=== PATIENT | female | born 1990 | race American Indian/Alaskan Native ===

== ENCOUNTER 2017-10-30 09:10 | Emergency (ER) | payer MEDICAID, OTHER ==
[2017-10-30 09:23] VITALS: BP 90/69
[2017-10-30] MEDS ORDERED: Lidocaine 1% 30 ML SDV INJECT ONE (09:37)
--- NOTE | 2017-10-30 09:42 | EDM.PDOC ---
ED HPI GENERAL MEDICAL PROBLEM - General Chief Complaint: Skin Complaint Stated Complaint: BOILS ON BACK Time Seen by Provider: 10/30/17 09:30 Source of Information: Reports: Patient History Limitations: Reports: No Limitations - History of Present Illness INITIAL COMMENTS - FREE TEXT/NARRATIVE: This 27 yo female patient reports to the ED with a 2 day history of increased pain in her mid back due to a "boil" in the middle of her back. The patient reports she also has a similar area on her right side, but it seems to be getting better. The patient reports she could not sleep last night due to increased pain in her back. The patient denies any personal or close family history of MRSA. Onset Date: 10/29/17 Duration: Constant, Getting Worse Location: Reports: Back Quality: Reports: Ache, Sharp Severity: Moderate Improves with: Reports: None Worsens with: Reports: None Associated Symptoms: Reports: No Other Symptoms - Related Data Allergies Allergy/AdvReac Type Severity Reaction Status Date / Time No Known Allergies Allergy Verified 10/30/17 09:17 Home Meds: Home Meds Ibuprofen [Ibuprofen] 1 tab PO Q6H PRN 04/26/15 [History] Past Medical History - Past Health History Medical/Surgical History: Denies Medical/Surgical History Social & Family History - Tobacco Use Smoking Status *Q: Current Some Day Smoker Years of Tobacco use: 9 Packs/Tins Daily: 0.2 Second Hand Smoke Exposure: Yes - Caffeine Use Caffeine Use: Reports: Coffee, Soda - Recreational Drug Use Recreational Drug Use: No ED ROS GENERAL - Review of Systems Review Of Systems: ROS reveals no pertinent complaints other than HPI. ED EXAM, SKIN/RASH Exam: See Below Exam Limited By: No Limitations General Appearance: Alert, WD/WN, No Apparent Distress Eye Exam: Bilateral Eye: EOMI, Normal Inspection, PERRL Ears: Normal External Exam, Normal Canal, Hearing Grossly Normal, Normal TMs Nose: Normal Inspection, Normal Mucosa, No Blood Throat/Mouth: Normal Inspection, Normal Lips, Normal Teeth, Normal Gums, Normal Oropharynx, Normal Voice, No Airway Compromise Head: Atraumatic, Normocephalic Neck: Normal Inspection, Supple, Non-Tender, Full Range of Motion Respiratory/Chest: No Respiratory Distress, Lungs Clear, Normal Breath Sounds, No Accessory Muscle Use, Chest Non-Tender Cardiovascular: Normal Peripheral Pulses, Regular Rate, Rhythm, No Edema, No Gallop, No JVD, No Murmur, No Rub GI/Abdominal: Normal Bowel Sounds, Soft, Non-Tender, No Organomegaly, No Distention, No Abnormal Bruit, No Mass (Female) Exam: Deferred Rectal (Female) Exam: Deferred Back Exam: Full Range of Motion Extremities: Normal Inspection, Normal Range of Motion, Non-Tender, No Pedal Edema, Normal Capillary Refill Neurological: Alert, Oriented, CN II-XII Intact, Normal Cognition, Normal Gait, Normal Reflexes, No Motor/Sensory Deficits Psychiatric: Normal Affect, Normal Mood Skin: Erythema (mid back) Location, Skin: Back Characteristics: Erythematous Associated features: Warmth, Tenderness, Induration, Inflammation Lymphatic: No Adenopathy Course - Vital Signs Last Recorded V/S: Last Vital Signs Temp 36.8 C 10/30/17 09:18 Pulse 113 H 10/30/17 09:18 Resp 18 10/30/17 09:18 BP 90/69 10/30/17 09:18 Pulse Ox 100 10/30/17 09:18 - Orders/Labs/Meds Orders: Active Orders 24 hr Category Date Time Status Bacitracin [Bacitracin Oint 1 GM] Med 10/30/17 09:53 Once 1 dose TOP ONETIME ONE Meds: Medications Discontinued Medications Generic Name Dose Route Start Last Admin Trade Name Sd PRN Reason Stop Dose Admin Lidocaine HCl 30 ml 10/30/17 09:37 10/30/17 09:43 Xylocaine-Mpf 1% INJECT 10/30/17 09:38 30 ml ONETIME ONE Administration Departure - Departure Time of Disposition: 09:56 Disposition: Home, Self-Care 01 Condition: Fair Clinical Impression: Abscess - Discharge Information Instructions: Abscess, [id number] Forms: ED Department Discharge Care Plan Goals: The patient was advised of the examination results during the visit. The patient was given a dose of Bactrim while in the ED. The patient's abscess was incised and drained with a sample sent to the lab for analysis. The patient will be notified if the culture grows something resistant to the antibiotic she was prescribed. The patient was discharged with a script for Bactrim DS to take 1 by mouth 2 times per day for 10 days. If the patient has any any additional symptoms or concerns, the patient should follow-up with her primary care facility or return to the emergency department. - My Orders Last 24 Hours: My Active Orders 10/30/17 09:53 Bacitracin [Bacitracin Oint 1 GM] 1 dose TOP ONETIME ONE - Assessment/Plan Last 24 Hours: My Active Orders 10/30/17 09:53 Bacitracin [Bacitracin Oint 1 GM] 1 dose TOP ONETIME ONE
[2017-10-30] MEDS ORDERED: Bacitracin Oint 1 GM U/D Packet TOP ONE (09:53)
[2017-10-30] MEDS ORDERED: Sulfamethoxazole/Trimethoprim 800-160 MG Tab PO ONE (09:57)
== END 2017-10-30 10:08 | disposition home or self-care (01) ==
LOC: DL.ED 09:10
DX: L02.212 Cutaneous abscess of back [any part, except buttock and flank] (principal); F17.210 Nicotine dependence, cigarettes, uncomplicated
CPT/HCPCS: 10060; 87070; 87077; 87186; 99283; A9270

== ENCOUNTER 2018-03-18 17:06 | Emergency (ER) | payer MEDICAID, OTHER ==
[2018-03-18 17:43] VITALS: BP 139/93
--- NOTE | 2018-03-18 18:52 | EDM.PDOC ---
Scribed by Maureen Jaramillo 03/18/18 [id number] for Jaswant Bronson MD ED HPI GENERAL MEDICAL PROBLEM - General Chief Complaint: Lower Extremity Injury/Pain Stated Complaint: LEG PAIN [id number] Time Seen by Provider: 03/18/18 17:48 Source of Information: Reports: Patient, RN, RN Notes Reviewed History Limitations: Reports: No Limitations - History of Present Illness INITIAL COMMENTS - FREE TEXT/NARRATIVE: Patient presents to ER with complaint of right foot pain sustained when she twisted her foot earlier today. Hurts to put weight on it. Denies any other injury. Onset: Today Location: Reports: Lower Extremity, Right Quality: Reports: Ache Severity: Moderate Improves with: Reports: None Worsens with: Reports: None Associated Symptoms: Reports: No Other Symptoms Left Feet Pain Score (Numeric/FACES): 10 - Related Data Allergies Allergy/AdvReac Type Severity Reaction Status Date / Time No Known Allergies Allergy Verified 10/30/17 09:17 Home Meds: Home Meds Ibuprofen 1 tab PO Q6H PRN 04/26/15 [History] Past Medical History - Past Health History Medical/Surgical History: Denies Medical/Surgical History Social & Family History - Caffeine Use Caffeine Use: Reports: Coffee, Soda Review of Systems - Review of Systems Review Of Systems: ROS reveals no pertinent complaints other than HPI. 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 Skin is intact.) Neurological: Alert, Oriented, CN II-XII Intact, Normal Cognition, Normal Reflexes, No Motor/Sensory Deficits Course - Vital Signs Last Recorded V/S: Last Vital Signs Temp 36.6 C 03/18/18 17:42 Pulse 98 03/18/18 17:42 Resp 16 03/18/18 17:42 BP 139/93 H 03/18/18 17:42 Pulse Ox 100 03/18/18 17:42 - Orders/Labs/Meds Orders: Active Orders 24 hr Category Date Time Status Foot Comp Min 3V Lt [CR] Urgent Exams 03/18/18 17:47 Taken - Radiology Interpretation Free Text/Narrative:: X-ray foot: Transverse fracture base of the 5th metatarsal is present. See rad report. Departure - Departure Time of Disposition: 18:41 Disposition: Home, Self-Care 01 Condition: Good Clinical Impression: Metatarsal bone fracture - Discharge Information Instructions: Metatarsal Fracture Forms: ED Department Discharge Care Plan Goals: Rest, ice and elevate the right foot. Use crutches for noweight bearing. Remove boot only for showering. Use ibuprofen (Motrin or Advil 200mg). Take 4 tablets by mouth maximum of 2400 in 24 hours. I have read and agree with the documentation that has been completed regarding this visit. By signing this record, I attest that the documentation was completed in my physical presence and is an accurate record of the encounter.
== END 2018-03-18 19:05 | disposition home or self-care (01) ==
LOC: DL.ED 17:06
DX: S92.351A Displaced fracture of fifth metatarsal bone, right foot, initial encounter for closed fracture (principal); X50.9XXA Other and unspecified overexertion or strenuous movements or postures, initial encounter
CPT/HCPCS: 73630-LT; 99283

== ENCOUNTER 2018-06-13 18:42 | Emergency (ER) | payer OTHER, MEDICAID ==
[2018-06-13 18:52] VITALS: BP 140/60
--- NOTE | 2018-06-13 19:57 | EDM.PDOC ---
ED HPI GENERAL MEDICAL PROBLEM - General Chief Complaint: Lower Extremity Injury/Pain Stated Complaint: SPRAINED ANKLE [id number] Time Seen by Provider: 06/13/18 19:58 Source of Information: Reports: Patient, RN, RN Notes Reviewed History Limitations: Reports: No Limitations - History of Present Illness INITIAL COMMENTS - FREE TEXT/NARRATIVE: Pt to Er with c/o right ankle/foot pain. Patient states she tripped over her dog today. Pt denies hitting her head or being knocked out. Rates pain 06/26. States she has been using ibuprofen for pain. Onset: Today, Sudden Right Ankle Pain Score (Numeric/FACES): 9 - Related Data Allergies Allergy/AdvReac Type Severity Reaction Status Date / Time No Known Allergies Allergy Verified 10/30/17 09:17 Home Meds: Home Meds Ibuprofen 1 tab PO Q6H PRN 04/26/15 [History] Past Medical History - Past Health History Medical/Surgical History: Denies Medical/Surgical History HEENT History: Reports: Impaired Vision Social & Family History - Tobacco Use Smoking Status *Q: Current Every Day Smoker Years of Tobacco use: 3 Packs/Tins Daily: 0.5 - Caffeine Use Caffeine Use: Reports: Coffee, Energy Drinks, Soda - Recreational Drug Use Recreational Drug Use: No Review of Systems - Review of Systems Review Of Systems: ROS reveals no pertinent complaints other than HPI. ED EXAM, GENERAL - Physical Exam Exam: See Below Exam Limited By: No Limitations General Appearance: Alert, WD/WN, No Apparent Distress Eye Exam: Bilateral Eye: EOMI, Normal Inspection Ears: Normal External Exam, Hearing Grossly Normal Nose: Normal Inspection Throat/Mouth: Normal Inspection, Normal Voice, No Airway Compromise Head: Atraumatic, Normocephalic Neck: Normal Inspection, Supple, Non-Tender, Full Range of Motion Respiratory/Chest: No Respiratory Distress, Lungs Clear, Normal Breath Sounds, No Accessory Muscle Use, Chest Non-Tender Cardiovascular: Normal Peripheral Pulses, Regular Rate, Rhythm, No Edema, No Gallop, No JVD, No Murmur, No Rub Peripheral Pulses: 2+: Radial (L), Radial (R), Dorsalis Pedis (L), Dorsalis Pedis (R) GI/Abdominal: Normal Bowel Sounds, Soft, Non-Tender (Female) Exam: Deferred Rectal (Female) Exam: Deferred Back Exam: Normal Inspection, Full Range of Motion, NT Extremities: Joint Swelling (right ankle), Leg Pain (right ankle/foot), Limited Range of Motion (right ankle/foot) Neurological: Alert, Oriented, CN II-XII Intact, Normal Cognition, Normal Reflexes, No Motor/Sensory Deficits Psychiatric: Normal Affect, Normal Mood Skin Exam: Warm, Dry, Intact, Normal Color, No Rash Lymphatic: No Adenopathy Course - Vital Signs Last Recorded V/S: Last Vital Signs Temp 97.6 F 06/13/18 18:49 Pulse 84 06/13/18 18:49 Resp 16 06/13/18 18:49 BP 140/60 06/13/18 18:49 Pulse Ox 99 06/13/18 18:49 - Orders/Labs/Meds Orders: Active Orders 24 hr Category Date Time Status Ankle 2V Rt [CR] Urgent Exams 06/13/18 18:56 Taken Foot 2V Rt [CR] Urgent Exams 06/13/18 19:25 Taken - Radiology Interpretation Free Text/Narrative:: Right ankle xray: IMPRESSION: Normal right ankle x-rays. Thank you for allowing us to participate in the care of your patient. Dictated and Authenticated by: Jose Layton MD 06/13/2018 7:22 PM Central Time ([place] & [place]) Right foot xray: FINDINGS: Bones/joints: Acute fracture the base of the fifth metatarsal bone. No displacement. There is extension to the articular surface. No dislocation. Soft tissues: Unremarkable. No radiopaque foreign body. IMPRESSION: acute fracture Thank you for allowing us to participate in the care of your patient. Dictated and Authenticated by: Jose Layton MD 06/13/2018 7:41 PM Central Time ([place] & [place]) See rad report Departure - Departure Time of Disposition: 19:55 Disposition: Home, Self-Care 01 Condition: Fair Clinical Impression: Fracture of fifth metatarsal bone Qualifiers: Encounter type: initial encounter Fracture type: closed Fracture alignment: nondisplaced Laterality: right Qualified Code(s): S92.354A - Nondisplaced fracture of fifth metatarsal bone, right foot, initial encounter for closed fracture - Discharge Information *PRESCRIPTION DRUG MONITORING PROGRAM REVIEWED*: No *COPY OF PRESCRIPTION DRUG MONITORING REPORT IN PATIENT KELLY: No Instructions: Metatarsal Fracture With Rehab-SportsMed, Cast or Splint Care, Adult, [id number] Referrals: PCP,None [Primary Care Provider] - Forms: ED Department Discharge Additional Instructions: Wear the boot until seen by podiatry Follow up with Dr. Marlin Woodard in Podiatry at [facility] - My Orders Last 24 Hours: My Active Orders 06/13/18 18:56 Ankle 2V Rt [CR] Urgent 06/13/18 19:25 Foot 2V Rt [CR] Urgent - Assessment/Plan Last 24 Hours: My Active Orders 06/13/18 18:56 Ankle 2V Rt [CR] Urgent 06/13/18 19:25 Foot 2V Rt [CR] Urgent
== END 2018-06-13 20:19 | disposition home or self-care (01) ==
LOC: DL.ED 18:42
DX: S92.354A Nondisplaced fracture of fifth metatarsal bone, right foot, initial encounter for closed fracture (principal); W01.0XXA Fall on same level from slipping, tripping and stumbling without subsequent striking against object, initial encounter; F17.210 Nicotine dependence, cigarettes, uncomplicated
CPT/HCPCS: 73600-RT; 73620-RT; 99283

== ENCOUNTER 2022-07-21 08:53 | Emergency (ER) | payer MEDICAID | END 2022-07-21 21:55 | disposition home or self-care (01) | LOC: DL.ED 08:53 | DX: S63.92XA Sprain of unspecified part of left wrist and hand, initial encounter (principal); W01.0XXA Fall on same level from slipping, tripping and stumbling without subsequent striking against object, initial encounter | CPT/HCPCS: 73130-LT; 99283 ==

== ENCOUNTER 2023-08-04 10:44 | Observation (INO) | payer MEDICAID ==
[2023-08-04] MEDS ORDERED: Sodium Chloride 0.9% 10 ML Syringe FLUSH PRN (10:47)
[2023-08-04 11:05] LABS: MEAN CORPUSCULAR HEMOGLOBIN 25.4 pg (27.0-34.0); MEAN CORPUSCULAR HGB CONC 26.3 g/dL (33.0-35.0); MEAN CORPUSCULAR VOLUME 96.5 fL (80-100); PLATELET COUNT,PLT 395 10^3/uL (150-450); RED BLOOD CELL COUNT 1.42 10^6/uL (4.2-5.4); WHITE BLOOD CELL COUNT,WBC 16.8 10^3/uL (5.0-10.0)
[2023-08-04 11:08] LABS: EOSINOPHILS PERCENT AUTO 0.5 % (1.0-3.0); HEMATOCRIT 13.7 % (37.0-47.0); HEMOGLOBIN 3.6 g/dL (12.0-16.0); LYMPHOCYTES PERCENT AUTO 17.2 % (20.5-50.1); NEUTROPHILS PERCENT AUTO 70.8 % (42.2-75.2)
[2023-08-04 11:09] LABS: BASOPHILS PERCENT AUTO 1.5 % (0.0-1.0)
[2023-08-04 11:17] LABS: BASOPHILS PERCENT MAN 1; LYMPHOCYTES PERCENT MAN 14 % (20-50); MONOCYTES PERCENT MAN 5 % (2-8); SEG NEUTROPHILS PERCENT MAN 80 % (42-75)
[2023-08-04 11:18] LABS: ANISOCYTOSIS 3+ MARKED; HYPOCHROMASIA 1+ SLIGHT; TARGET CELLS 2+ MODERATE
[2023-08-04 11:19] LABS: A/G RATIO 0.33; ALBUMIN 2.1 g/dL (3.4-5.0); ANION GAP 14.5 mEq/L (7-13); BILIRUBIN TOTAL 1.4 mg/dL (0.2-1.0); BUN/CREATININE RATIO 6.9 (No establ ref range); CREATININE 1.02 mg/dL (0.55-1.02); EST CRCL DRUG DOSING (CG) 82.75 mL/min; POTASSIUM,K 3.5 mmol/L (3.5-5.1); PROTEIN TOTAL,TP 8.5 g/dL (6.4-8.2)
[2023-08-04 11:34] LABS: APPEARANCE,URINE CLEAR (CLEAR); BILIRUBIN,URINE SMALL (NEGATIVE); COLOR,URINE YELLOW (YELLOW); GLUCOSE,URINE 100 (NEGATIVE); KETONES,URINE NEGATIVE (NEGATIVE); LEUKOCYTE ESTERASE,URINE NEGATIVE (NEGATIVE); NITRITE,URINE NEGATIVE (NEGATIVE); OCCULT BLOOD,URINE NEGATIVE (NEGATIVE); PROTEIN,URINE 100 (NEGATIVE)
[2023-08-04 11:56] LABS: BACTERIA,URINE FEW /HPF (0-FEW/HPF); EPITHELIAL CELLS,URINE MODERATE /HPF (NOT SEEN); RBC,URINE NOT SEEN /HPF (0-5); WBC,URINE 0-5 /HPF (0-5/HPF)
[2023-08-04 11:57] LABS: INR 1.1 (0.9-1.2); PROTHROMBIN TIME 11.6 SEC (9.0-12.0); PTT,PARTIAL THROMBOPLSTIN TIME 26.9 SEC (22.0-34.0)
[2023-08-04] MEDS ORDERED: Acetaminophen 325 MG Tab PO ONE (12:06)
[2023-08-04] MEDS ORDERED: HYDROmorphone 0.5 MG/0.5 ML Syringe IVPUSH PRN (12:56)
[2023-08-04] MEDS ORDERED: Ondansetron 4 MG/2 ML SDV IVPUSH PRN (12:56)
[2023-08-04] MEDS ORDERED: Acetaminophen/oxyCODONE 325-5 MG Tab PO PRN (12:56)
[2023-08-04] MEDS ORDERED: Albuterol/Ipratropium 3.0-0.5 MG/3 ML Neb Soln NEB PRN (12:56)
[2023-08-04] MEDS ORDERED: Temazepam 15 MG Cap PO PRN (12:56)
[2023-08-04] MEDS ORDERED: Acetaminophen 325 MG Tab PO PRN (12:56)
[2023-08-04 13:05] LABS: PERCENT FE SATURATION 3.6 % (20.0-50.0)
[2023-08-04] MEDS ORDERED: Dexamethasone 4 MG/ML SDV IVPUSH ONE (14:19)
[2023-08-04] MEDS ORDERED: diphenhydrAMINE 50 MG/ML SDV IVPUSH ONE (14:19)
[2023-08-04] MEDS ORDERED: Famotidine 20 MG/2 ML SDV IVPUSH ONE (14:19)
[2023-08-04] MEDS: Sucralfate Suspension 1 GM/10 ML Cup PO SCH ×2 (18:30→20:09)
[2023-08-04] MEDS: Pantoprazole 40 MG Vial IVPUSH SCH (20:07)
[2023-08-04] MEDS ORDERED: Ascorbic Acid 500 MG Tab PO SCH (21:00)
[2023-08-04] MEDS ORDERED: Iron Polysaccharides Complex 150 MG Cap PO SCH (21:00)
[2023-08-05 00:25] LABS: HEMATOCRIT 20.9 % (37.0-47.0); HEMOGLOBIN 6.4 g/dL (12.0-16.0)
[2023-08-05 05:56] LABS: BASOPHILS PERCENT AUTO 0.5 % (0.0-1.0); EOSINOPHILS PERCENT AUTO 0.1 % (1.0-3.0); LYMPHOCYTES PERCENT AUTO 11.3 % (20.5-50.1); MEAN CORPUSCULAR HEMOGLOBIN 27.5 pg (27.0-34.0); MEAN CORPUSCULAR HGB CONC 30.7 g/dL (33.0-35.0); MEAN CORPUSCULAR VOLUME 89.6 fL (80-100); MONOCYTES PERCENT AUTO 5.5 % (2-8); NEUTROPHILS PERCENT AUTO 82.6 % (42.2-75.2); PLATELET COUNT,PLT 294 10^3/uL (150-450); RED BLOOD CELL COUNT 2.22 10^6/uL (4.2-5.4); WHITE BLOOD CELL COUNT,WBC 11.4 10^3/uL (5.0-10.0)
[2023-08-05 06:00] LABS: ANION GAP 13.1 mEq/L (7-13); BILIRUBIN TOTAL 2.3 mg/dL (0.2-1.0); BUN/CREATININE RATIO 10.5 (No establ ref range); CREATININE 0.86 mg/dL (0.55-1.02); EST CRCL DRUG DOSING (CG) 98.15 mL/min; MAGNESIUM 2.3 mg/dL (1.8-2.4); POTASSIUM,K 4.1 mmol/L (3.5-5.1); PROTEIN TOTAL,TP 7.8 g/dL (6.4-8.2)
[2023-08-05 06:07] LABS: A/G RATIO 0.34
[2023-08-05 06:10] LABS: HEMATOCRIT 19.9 % (37.0-47.0); HEMOGLOBIN 6.1 g/dL (12.0-16.0)
[2023-08-05 07:40] LABS: INR 1.2 (0.9-1.2); PROTHROMBIN TIME 12.1 SEC (9.0-12.0)
[2023-08-05] MEDS: Sucralfate Suspension 1 GM/10 ML Cup PO SCH (07:47)
[2023-08-05] MEDS: Pantoprazole 40 MG Vial IVPUSH SCH (08:02)
[2023-08-05 08:27] VITALS: PULSE 100
[2023-08-05 09:14] VITALS: BP 123/75
== END 2023-08-05 11:00 | disposition left against medical advice (07) ==
LOC: DL.ED 10:44 → DL.MS 12:09 → DL.ED 12:25
PROVIDERS: ADMIT Internal Medicine; ATTEND Internal Medicine
DX: D64.9 Anemia, unspecified (principal); K92.2 Gastrointestinal hemorrhage, unspecified; M54.9 Dorsalgia, unspecified; G89.29 Other chronic pain; F32.9 Major depressive disorder, single episode, unspecified; F10.10 Alcohol abuse, uncomplicated; F19.10 Other psychoactive substance abuse, uncomplicated; R73.9 Hyperglycemia, unspecified; F41.9 Anxiety disorder, unspecified; F15.10 Other stimulant abuse, uncomplicated; E88.09 Other disorders of plasma-protein metabolism, not elsewhere classified; F17.210 Nicotine dependence, cigarettes, uncomplicated; E66.01 Morbid (severe) obesity due to excess calories; Z68.41 Body mass index [BMI] 40.0-44.9, adult; Z79.899 Other long term (current) drug therapy; Z53.20 Procedure and treatment not carried out because of patient's decision for unspecified reasons
CPT/HCPCS: 36415; 36430; 71045; 80053; 81001; 81025; 82272; 83540; 83550; 83735; 85014; 85018; 85025; 85610; 85730; 86850; 86900; 86901; 86920; 86922; 96374; 96375; 96376; 99284; 99285; A9270-GY; C9113; G0378; J1100; J1200; J3490; P9016

== ENCOUNTER 2023-08-09 15:29 | Emergency (ER) | payer MEDICAID ==
[2023-08-09] MEDS ORDERED: Sodium Chloride 0.9% 10 ML Syringe FLUSH PRN (15:40)
[2023-08-09 15:46] VITALS: BP 147/80; PULSE 98
[2023-08-09 15:56] LABS: BASOPHILS PERCENT AUTO 1.4 % (0.0-1.0); EOSINOPHILS PERCENT AUTO 1.7 % (1.0-3.0); HEMATOCRIT 25.1 % (37.0-47.0); HEMOGLOBIN 8.3 g/dL (12.0-16.0); LYMPHOCYTES PERCENT AUTO 18.9 % (20.5-50.1); MEAN CORPUSCULAR HEMOGLOBIN 30.9 pg (27.0-34.0); MEAN CORPUSCULAR HGB CONC 33.1 g/dL (33.0-35.0); MEAN CORPUSCULAR VOLUME 93.3 fL (80-100); MONOCYTES PERCENT AUTO 5.9 % (2-8); NEUTROPHILS PERCENT AUTO 72.1 % (42.2-75.2); PLATELET COUNT,PLT 252 10^3/uL (150-450); RED BLOOD CELL COUNT 2.69 10^6/uL (4.2-5.4); WHITE BLOOD CELL COUNT,WBC 11.5 10^3/uL (5.0-10.0)
[2023-08-09 16:13] LABS: ALBUMIN 2.2 g/dL (3.4-5.0); ANION GAP 14.1 mEq/L (7-13); BILIRUBIN TOTAL 1.4 mg/dL (0.2-1.0); BUN/CREATININE RATIO 5.9 (No establ ref range); CREATININE 0.85 mg/dL (0.55-1.02); EST CRCL DRUG DOSING (CG) 99.3 mL/min; POTASSIUM,K 3.1 mmol/L (3.5-5.1); PROTEIN TOTAL,TP 8.1 g/dL (6.4-8.2)
[2023-08-09 16:23] LABS: A/G RATIO 0.37
[2023-08-09] MEDS ORDERED: Sodium Chloride 0.9% 1,000 ML IV ONE (16:39)
== END 2023-08-09 17:43 | disposition home or self-care (01) ==
LOC: DL.ED 15:29
DX: K80.20 Calculus of gallbladder without cholecystitis without obstruction (principal); D64.9 Anemia, unspecified; K74.60 Unspecified cirrhosis of liver
CPT/HCPCS: 36415; 76700; 80053; 80307; 84703; 85025; 96360; 99284-25; J3490; J7030

== ENCOUNTER 2023-09-11 08:45 | Emergency (ER) | payer MEDICAID ==
[2023-09-11] MEDS ORDERED: Pantoprazole 40 MG Vial IVPUSH ONE (08:53)
[2023-09-11] MEDS ORDERED: Sodium Chloride 0.9% 1,000 ML IV ONE (08:54)
[2023-09-11] MEDS ORDERED: Ondansetron 4 MG/2 ML SDV ONE (08:58)
[2023-09-11] MEDS ORDERED: Pantoprazole 80 MG in Sodium Chloride 0.9% 100 ML IV SCH (09:00)
[2023-09-11] MEDS ORDERED: Ondansetron 8 MG in Sodium Chloride 0.9% 50 ML IV ONE (09:00)
[2023-09-11] MEDS ORDERED: Octreotide 100 MCG in Sodium Chloride 0.9% 99 ML IV SCH (09:00)
[2023-09-11] MEDS ORDERED: Sodium Chloride 0.9% 10 ML Syringe FLUSH PRN (09:10)
[2023-09-11 09:11] LABS: HEMATOCRIT 24.4 % (37.0-47.0); HEMOGLOBIN 7.2 g/dL (12.0-16.0); MEAN CORPUSCULAR HEMOGLOBIN 26.4 pg (27.0-34.0); MEAN CORPUSCULAR HGB CONC 29.5 g/dL (33.0-35.0); MEAN CORPUSCULAR VOLUME 89.4 fL (80-100); PLATELET COUNT,PLT 261 10^3/uL (150-450); RED BLOOD CELL COUNT 2.73 10^6/uL (4.2-5.4)
[2023-09-11] MEDS ORDERED: Ondansetron 4 MG/2 ML SDV IVPUSH ONE (09:12)
[2023-09-11 09:23] LABS: A/G RATIO 0.36; ALANINE AMINOTRANSFERASE,ALT 38 U/L (14-59); ALBUMIN 2.1 g/dL (3.4-5.0); ALKALINE PHOSPHATASE 169 U/L (46-116); ANION GAP 16.5 mEq/L (7-13); ASPARTATE AMNIOTRANSFERASE,AST 61 U/L (15-37); BILIRUBIN TOTAL 2.1 mg/dL (0.2-1.0); BLOOD UREA NITROGEN,BUN 18 mg/dL (7-18); BUN/CREATININE RATIO 16.7 (No establ ref range); C-REACTIVE PROTEIN 1.81 ng/dL (<=0.50); CALCIUM 7.9 mg/dL (8.5-10.1); CARBON DIOXIDE,CO2 23 mmol/L (21-32); CHLORIDE,CL 103 mmol/L (98-107); CREATININE 1.08 mg/dL (0.55-1.02); EST CRCL DRUG DOSING (CG) 77.43 mL/min; ESTIMATED GFR 70 mL/min (>=60); ETHANOL BLOOD MEDICAL 57 mg/dL (0); GLUCOSE RANDOM 152 mg/dL (70-99); LIPASE 13 U/L (16-77); MAGNESIUM 1.6 mg/dL (1.8-2.4); POTASSIUM,K 3.5 mmol/L (3.5-5.1); PROTEIN TOTAL,TP 7.9 g/dL (6.4-8.2); SODIUM,NA 139 mmol/L (136-145)
[2023-09-11 09:27] LABS: BASOPHILS PERCENT AUTO 0.7 % (0.0-1.0); LYMPHOCYTES PERCENT AUTO 11.5 % (20.5-50.1); MONOCYTES PERCENT AUTO 6.7 % (2-8); NEUTROPHILS PERCENT AUTO 81.1 % (42.2-75.2)
[2023-09-11 09:31] LABS: LACTIC ACID 6.8 mmol/L (0.4-2.0)
[2023-09-11 09:32] LABS: HCG QUALITATIVE,SERUM NEGATIVE (NEGATIVE)
[2023-09-11] MEDS ORDERED: Magnesium Sulfate/Water 2 GM in Premix Bag 1 BAG IV ONE (09:42)
[2023-09-11] MEDS ORDERED: cefTRIAXone 2 GM Vial IVPUSH ONE (09:42)
[2023-09-11 09:45] LABS: B-TYPE NATRIURETIC PEPTIDE,BNP 56 pg/ml (0-100)
[2023-09-11 09:53] LABS: ANISOCYTOSIS 2+ MODERATE; HYPOCHROMASIA 1+ SLIGHT; LYMPHOCYTES PERCENT MAN 12 % (20-50); MONOCYTES PERCENT MAN 2 % (2-8); NRBC MANUAL 1 /100WBC; SEG NEUTROPHILS PERCENT MAN 86 % (42-75)
[2023-09-11 09:54] LABS: TARGET CELLS 1+ SLIGHT
[2023-09-11] MEDS ORDERED: Promethazine 25 MG/ML SDV IM ONE (10:04)
[2023-09-11 10:15] LABS: INR 1.6 (0.9-1.2); PROTHROMBIN TIME 15.8 SEC (9.0-12.0); PTT,PARTIAL THROMBOPLSTIN TIME 27.6 SEC (22.0-34.0)
[2023-09-11 11:17] VITALS: PULSE 118
[2023-09-11 13:56] VITALS: BP 111/74
== END 2023-09-11 13:56 ==
LOC: DL.ED 08:45
DX: K92.2 Gastrointestinal hemorrhage, unspecified (principal); D62 Acute posthemorrhagic anemia; K70.31 Alcoholic cirrhosis of liver with ascites; D72.829 Elevated white blood cell count, unspecified; E83.42 Hypomagnesemia; R00.0 Tachycardia, unspecified; Z79.899 Other long term (current) drug therapy
CPT/HCPCS: 36415; 36430; 80053; 80307; 82140; 82272; 83605; 83690; 83735; 83880; 84703; 85025; 85610; 85730; 86140; 86850; 86900; 86901; 86920; 86922; 93005; 93010; 96365; 96366; 96368; 96372; 96375; 99285; C9113; J0696; J2354; J2405; J2550; J3475; J3490; J7030; P9016

== ENCOUNTER 2023-09-20 19:12 | Emergency (ER) | payer MEDICAID ==
[2023-09-20 19:34] LABS: BASOPHILS PERCENT AUTO 0.9 % (0.0-1.0); EOSINOPHILS PERCENT AUTO 0.9 % (1.0-3.0); HEMATOCRIT 22.7 % (37.0-47.0); LYMPHOCYTES PERCENT AUTO 25.7 % (20.5-50.1); MEAN CORPUSCULAR VOLUME 93.4 fL (80-100); NEUTROPHILS PERCENT AUTO 64.5 % (42.2-75.2); PLATELET COUNT,PLT 329 10^3/uL (150-450); RED BLOOD CELL COUNT 2.43 10^6/uL (4.2-5.4); WHITE BLOOD CELL COUNT,WBC 22.1 10^3/uL (5.0-10.0)
[2023-09-20 19:35] LABS: HEMOGLOBIN 6.8 g/dL (12.0-16.0)
[2023-09-20] MEDS ORDERED: Sodium Chloride 0.9% 1,000 ML IV ONE (19:42)
[2023-09-20] MEDS ORDERED: Ondansetron 4 MG/2 ML SDV IVPUSH ONE (19:43)
[2023-09-20 19:51] LABS: B-TYPE NATRIURETIC PEPTIDE,BNP 84 pg/ml (0-100)
[2023-09-20 19:53] LABS: ALANINE AMINOTRANSFERASE,ALT 31 U/L (14-59); ALBUMIN 1.9 g/dL (3.4-5.0); ALKALINE PHOSPHATASE 176 U/L (46-116); ANION GAP 8.9 mEq/L (7-13); ASPARTATE AMNIOTRANSFERASE,AST 44 U/L (15-37); BILIRUBIN TOTAL 1.4 mg/dL (0.2-1.0); BLOOD UREA NITROGEN,BUN 7 mg/dL (7-18); CALCIUM 7.5 mg/dL (8.5-10.1); CARBON DIOXIDE,CO2 26 mmol/L (21-32); CHLORIDE,CL 106 mmol/L (98-107); CREATININE 0.88 mg/dL (0.55-1.02); EST CRCL DRUG DOSING (CG) 95.03 mL/min; GLUCOSE RANDOM 112 mg/dL (70-99); LIPASE 48 U/L (16-77); POTASSIUM,K 3.9 mmol/L (3.5-5.1); PROTEIN TOTAL,TP 6.8 g/dL (6.4-8.2); SODIUM,NA 137 mmol/L (136-145)
[2023-09-20 19:56] LABS: A/G RATIO 0.39; ESTIMATED GFR 89 mL/min (>=60); ETHANOL BLOOD MEDICAL < 3 mg/dL (0)
[2023-09-20 20:00] LABS: HCG QUALITATIVE,SERUM NEGATIVE (NEGATIVE)
[2023-09-20 20:09] LABS: INR 1.2 (0.9-1.2); PTT,PARTIAL THROMBOPLSTIN TIME 27.6 SEC (22.0-34.0)
[2023-09-20] MEDS: Octreotide 100 MCG in Sodium Chloride 0.9% 99 ML IV SCH ×2 (20:10→22:10)
[2023-09-20] MEDS ORDERED: Promethazine 25 MG/ML SDV IM ONE (20:13)
[2023-09-20 20:22] LABS: LACTIC ACID 2.9 mmol/L (0.4-2.0)
[2023-09-20] MEDS ORDERED: Pantoprazole 40 MG Vial IVPUSH ONE (20:33)
[2023-09-20] MEDS ORDERED: cefTRIAXone 2 GM Vial IVPUSH ONE (20:51)
[2023-09-20] MEDS ORDERED: Norepinephrine Bit/D5W Premix 250 ML IV SCH (22:30)
[2023-09-20 23:22] VITALS: BP 112/50; PULSE 112
== END 2023-09-20 23:22 ==
LOC: DL.ED 19:12
DX: K92.2 Gastrointestinal hemorrhage, unspecified (principal); K70.31 Alcoholic cirrhosis of liver with ascites; F10.10 Alcohol abuse, uncomplicated; K92.1 Melena; D62 Acute posthemorrhagic anemia; I85.00 Esophageal varices without bleeding; Z79.899 Other long term (current) drug therapy
CPT/HCPCS: 36415; 36430; 80053; 80307; 82140; 82272; 83605; 83690; 83880; 84703; 85025; 85610; 85730; 86850; 86900; 86901; 86920; 86922; 96365; 96366; 96372; 96375; 99285; 99285-25; C9113; J0696; J2354-JA; J2405; J2550; J3490; J7030; P9016

== ENCOUNTER 2023-11-01 04:52 | Emergency (ER) | payer MEDICAID ==
[2023-11-01] MEDS ORDERED: Sodium Chloride 0.9% 10 ML Syringe FLUSH PRN (04:58)
[2023-11-01 05:16] LABS: BASOPHILS PERCENT AUTO 1.4 % (0.0-1.0); EOSINOPHILS PERCENT AUTO 1.1 % (1.0-3.0); HEMATOCRIT 33.9 % (37.0-47.0); HEMOGLOBIN 10.7 g/dL (12.0-16.0); LYMPHOCYTES PERCENT AUTO 17.7 % (20.5-50.1); MEAN CORPUSCULAR HEMOGLOBIN 28.1 pg (27.0-34.0); MEAN CORPUSCULAR HGB CONC 31.6 g/dL (33.0-35.0); MONOCYTES PERCENT AUTO 7.9 % (2-8); NEUTROPHILS PERCENT AUTO 71.9 % (42.2-75.2); PLATELET COUNT,PLT 240 10^3/uL (150-450); RED BLOOD CELL COUNT 3.81 10^6/uL (4.2-5.4); WHITE BLOOD CELL COUNT,WBC 9.2 10^3/uL (5.0-10.0)
[2023-11-01] MEDS ORDERED: MVI, Adult with Vitamin K 10 ML, Folic Acid 1 MG, Thiamine 100 MG in Lactated Ringers 1... IV ONE ×4 (05:18)
[2023-11-01 05:40] LABS: ALANINE AMINOTRANSFERASE,ALT 57 U/L (14-59); ALBUMIN 2.4 g/dL (3.4-5.0); ALKALINE PHOSPHATASE 181 U/L (46-116); AMYLASE 24 U/L (25-115); ANION GAP 15.5 mEq/L (7-13); ASPARTATE AMNIOTRANSFERASE,AST 96 U/L (15-37); BILIRUBIN TOTAL 1.7 mg/dL (0.2-1.0); BLOOD UREA NITROGEN,BUN 2 mg/dL (7-18); BUN/CREATININE RATIO 2.7 (No establ ref range); C-REACTIVE PROTEIN 0.69 ng/dL (<=0.50); CALCIUM 8.2 mg/dL (8.5-10.1); CARBON DIOXIDE,CO2 23 mmol/L (21-32); CHLORIDE,CL 104 mmol/L (98-107); CREATININE 0.74 mg/dL (0.55-1.02); ETHANOL BLOOD MEDICAL 15 mg/dL (0); LACTIC ACID 1.8 mmol/L (0.4-2.0); LIPASE 31 U/L (16-77); MAGNESIUM 1.7 mg/dL (1.8-2.4); POTASSIUM,K 3.5 mmol/L (3.5-5.1); PROTEIN TOTAL,TP 8.7 g/dL (6.4-8.2); SODIUM,NA 139 mmol/L (136-145)
[2023-11-01 05:44] LABS: APPEARANCE,URINE CLEAR (CLEAR); BILIRUBIN,URINE NEGATIVE (NEGATIVE); COLOR,URINE YELLOW (YELLOW); GLUCOSE,URINE NEGATIVE (NEGATIVE); KETONES,URINE NEGATIVE (NEGATIVE); LEUKOCYTE ESTERASE,URINE NEGATIVE (NEGATIVE); NITRITE,URINE NEGATIVE (NEGATIVE); OCCULT BLOOD,URINE NEGATIVE (NEGATIVE); PH,URINE 6.5 (5.0-9.0); PROTEIN,URINE NEGATIVE (NEGATIVE)
[2023-11-01 05:47] LABS: AMPHETAMINES,URINE NEGATIVE (NEGATIVE); BARBITURATES,URINE NEGATIVE (NEGATIVE); BENZODIAZEPINE,URINE NEGATIVE (NEGATIVE); MDMA (ECSTASY), URINE NEGATIVE (NEGATIVE); METHADONE,URINE NEGATIVE (NEGATIVE); METHAMPHETAMINES,URINE NEGATIVE (NEGATIVE); OPIATES,URINE NEGATIVE (NEGATIVE); OXYCODONE,URINE NEGATIVE (NEGATIVE); PHENCYCLIDINE,URINE NEGATIVE (NEGATIVE); TCA,URINE NEGATIVE (NEGATIVE)
[2023-11-01 05:48] LABS: GLUCOSE RANDOM 87 mg/dL (70-99)
[2023-11-01] MEDS ORDERED: Ondansetron 4 MG/2 ML SDV IVPUSH ONE (05:51)
[2023-11-01 05:53] LABS: INR 1.2 (0.9-1.2); PROTHROMBIN TIME 12.5 SEC (9.0-12.0)
[2023-11-01 06:00] LABS: A/G RATIO 0.38; ESTIMATED GFR 109 mL/min (>=60)
[2023-11-01] MEDS ORDERED: LORazepam 2 MG/ML SDV IVPUSH ONE (06:06)
[2023-11-01 06:13] LABS: CORONAVIRUS COVID-19 NAA NEGATIVE (NEGATIVE); INFLUENZA A NAA NEGATIVE (NEGATIVE); INFLUENZA B NAA NEGATIVE (NEGATIVE); RESPIRATORY SYNCYTIAL VIR NAA NEGATIVE (NEGATIVE)
[2023-11-01] MEDS ORDERED: Iopamidol 612 MG/ML 100 ML Bottle IVPUSH ONE (06:27)
[2023-11-01 06:51] LABS: PTT,PARTIAL THROMBOPLSTIN TIME 30.8 SEC (22.0-34.0)
[2023-11-01 09:17] VITALS: BP 141/91; PULSE 124
[2023-11-01] MEDS ORDERED: Ondansetron 4 MG Tab.DIS PO ONE (09:22)
[2023-11-01] MEDS ORDERED: LORazepam 1 MG Tab PO ONE (09:22)
== END 2023-11-01 09:55 | disposition home or self-care (01) ==
LOC: DL.ED 04:52
DX: K70.31 Alcoholic cirrhosis of liver with ascites (principal); K80.20 Calculus of gallbladder without cholecystitis without obstruction; I10 Essential (primary) hypertension; Z79.899 Other long term (current) drug therapy
CPT/HCPCS: 0241U; 36415; 74177; 76705; 80053; 80305; 80307; 81003; 81025; 82150; 83605; 83690; 83735; 84145; 84484; 85025; 85610; 85730; 86140; 87040; 93005; 96365; 96375; 99285; A9270; J2060; J2405; J3411; J7120; Q9967; 93010; 99284; J3490

== ENCOUNTER 2023-12-14 00:39 | Emergency (ER) | payer MEDICAID ==
[2023-12-14] MEDS: Sodium Chloride 0.9% 10 ML Syringe FLUSH PRN (01:03)
[2023-12-14] MEDS: Ondansetron 4 MG/2 ML SDV IVPUSH ONE (01:03)
[2023-12-14 01:06] LABS: HEMATOCRIT 31.3 % (37.0-47.0); HEMOGLOBIN 10.7 g/dL (12.0-16.0); MEAN CORPUSCULAR HEMOGLOBIN 30.4 pg (27.0-34.0); MEAN CORPUSCULAR HGB CONC 34.2 g/dL (33.0-35.0); MEAN CORPUSCULAR VOLUME 88.9 fL (80-100); PLATELET COUNT,PLT 103 10^3/uL (150-450); RED BLOOD CELL COUNT 3.52 10^6/uL (4.2-5.4); WHITE BLOOD CELL COUNT,WBC 12.5 10^3/uL (5.0-10.0)
[2023-12-14 01:20] LABS: BAND PERCENT MAN 1 %; EOSINOPHILS PERCENT MAN 1 % (1-3); LYMPHOCYTES PERCENT MAN 9 % (20-50); MONOCYTES PERCENT MAN 7 % (2-8); SEG NEUTROPHILS PERCENT MAN 82 % (42-75)
[2023-12-14 01:21] LABS: ALBUMIN 2.2 g/dL (3.4-5.0); ANION GAP 15.9 mEq/L (7-13); BILIRUBIN TOTAL 13.4 mg/dL (0.2-1.0); BUN/CREATININE RATIO 1.4 (No establ ref range); C-REACTIVE PROTEIN 2.92 ng/dL (<=0.50); CALCIUM 8.2 mg/dL (8.5-10.1); CREATININE 0.72 mg/dL (0.55-1.02); EST CRCL DRUG DOSING (CG) 116.14 mL/min; PLATELET COUNT ESTIMATE DECREASED; POTASSIUM,K 3.9 mmol/L (3.5-5.1); PROTEIN TOTAL,TP 9.6 g/dL (6.4-8.2)
[2023-12-14 01:23] LABS: A/G RATIO 0.3
[2023-12-14] MEDS: Sodium Chloride 0.9% 1,000 ML IV ONE (01:24)
[2023-12-14 01:25] LABS: LACTIC ACID 2.6 mmol/L (0.4-2.0)
[2023-12-14 01:28] VITALS: PULSE 95
[2023-12-14 01:33] LABS: AMPHETAMINES,URINE NEGATIVE (NEGATIVE); BARBITURATES,URINE NEGATIVE (NEGATIVE); BENZODIAZEPINE,URINE NEGATIVE (NEGATIVE); MDMA (ECSTASY), URINE NEGATIVE (NEGATIVE); METHADONE,URINE NEGATIVE (NEGATIVE); METHAMPHETAMINES,URINE NEGATIVE (NEGATIVE); OPIATES,URINE NEGATIVE (NEGATIVE); OXYCODONE,URINE NEGATIVE (NEGATIVE); PHENCYCLIDINE,URINE NEGATIVE (NEGATIVE); TCA,URINE NEGATIVE (NEGATIVE)
[2023-12-14 01:37] LABS: CORONAVIRUS COVID-19 NAA NEGATIVE (NEGATIVE); INFLUENZA A NAA NEGATIVE (NEGATIVE); INFLUENZA B NAA NEGATIVE (NEGATIVE)
[2023-12-14 01:38] LABS: APPEARANCE,URINE SLIGHTLY CLOUDY (CLEAR); BILIRUBIN,URINE LARGE (NEGATIVE); COLOR,URINE AMBER (YELLOW); GLUCOSE,URINE 100 (NEGATIVE); KETONES,URINE 15 (NEGATIVE); LEUKOCYTE ESTERASE,URINE LARGE (NEGATIVE); NITRITE,URINE POSITIVE (NEGATIVE); OCCULT BLOOD,URINE NEGATIVE (NEGATIVE); PH,URINE 5.5 (5.0-9.0); PROTEIN,URINE 100 (NEGATIVE); UROBILINOGEN,URINE >=8.0 mg/dL (0.2-1.0)
[2023-12-14 01:38] LABS: INR 1.7 (0.9-1.2); PROTHROMBIN TIME 17.3 SEC (9.0-12.0)
[2023-12-14 01:41] LABS: WBC,URINE 0-5 /HPF (0-5/HPF)
[2023-12-14 01:42] LABS: MUCUS,URINE MODERATE /LPF (NOT SEEN); RBC,URINE 0-5 /HPF (0-5)
[2023-12-14 01:43] LABS: BACTERIA,URINE MODERATE /HPF (0-FEW/HPF)
[2023-12-14 01:44] LABS: EPITHELIAL CELLS,URINE MODERATE /HPF (NOT SEEN)
[2023-12-14] MEDS: Ciprofloxacin 500 MG Tab PO ONE (01:47)
[2023-12-14 01:58] VITALS: BP 118/93
== END 2023-12-14 01:58 | disposition home or self-care (01) ==
LOC: DL.ED 00:39 → SUPCPDRO 00:39 → DL.ED 01:58
DX: N30.01 Acute cystitis with hematuria (principal); I10 Essential (primary) hypertension; Z79.899 Other long term (current) drug therapy
CPT/HCPCS: 0240U; 36415; 80053; 80305-QW; 80307; 81001; 81025; 82150; 82550; 83605; 83690; 85025; 85610; 86140; 87086; 96361; 96374; 99284; 99284-25; A9270-GY; J2405; J3490; J7030

== ENCOUNTER 2024-01-04 15:08 | Emergency (ER) | payer MEDICAID ==
[2024-01-04 15:33] LABS: HEMATOCRIT 27.9 % (37.0-47.0); HEMOGLOBIN 9.2 g/dL (12.0-16.0); MEAN CORPUSCULAR VOLUME 106.1 fL (80-100); PLATELET COUNT,PLT 144 10^3/uL (150-450); RED BLOOD CELL COUNT 2.63 10^6/uL (4.2-5.4); WHITE BLOOD CELL COUNT,WBC 18.6 10^3/uL (5.0-10.0)
[2024-01-04 15:39] LABS: APPEARANCE,URINE SLIGHTLY CLOUDY (CLEAR); BILIRUBIN,URINE LARGE (NEGATIVE); COLOR,URINE AMBER (YELLOW); GLUCOSE,URINE 100 (NEGATIVE); KETONES,URINE TRACE (NEGATIVE); LEUKOCYTE ESTERASE,URINE NEGATIVE (NEGATIVE); NITRITE,URINE NEGATIVE (NEGATIVE); OCCULT BLOOD,URINE LARGE (NEGATIVE); PROTEIN,URINE 30 (NEGATIVE); UROBILINOGEN,URINE 0.2 mg/dL (0.2-1.0)
[2024-01-04 15:42] LABS: BASOPHILS PERCENT AUTO 0.3 % (0.0-1.0); EOSINOPHILS PERCENT AUTO 0.6 % (1.0-3.0); LYMPHOCYTES PERCENT AUTO 6.2 % (20.5-50.1); MONOCYTES PERCENT AUTO 9.1 % (2-8); NEUTROPHILS PERCENT AUTO 83.8 % (42.2-75.2)
[2024-01-04 15:47] LABS: AMPHETAMINES,URINE POSITIVE (NEGATIVE); BARBITURATES,URINE NEGATIVE (NEGATIVE); BENZODIAZEPINE,URINE NEGATIVE (NEGATIVE); MDMA (ECSTASY), URINE NEGATIVE (NEGATIVE); METHADONE,URINE NEGATIVE (NEGATIVE); METHAMPHETAMINES,URINE NEGATIVE (NEGATIVE); OPIATES,URINE NEGATIVE (NEGATIVE); OXYCODONE,URINE NEGATIVE (NEGATIVE); PHENCYCLIDINE,URINE NEGATIVE (NEGATIVE); TCA,URINE NEGATIVE (NEGATIVE)
[2024-01-04] MEDS: Sodium Chloride 0.9% 10 ML Syringe FLUSH PRN (15:48)
[2024-01-04 15:52] LABS: BACTERIA,URINE FEW /HPF (0-FEW/HPF); EPITHELIAL CELLS,URINE MODERATE /HPF (NOT SEEN); RBC,URINE 0-5 /HPF (0-5)
[2024-01-04 15:53] LABS: FINE GRANULAR CASTS,URINE OCCASIONAL /LPF (NOT SEEN)
[2024-01-04 15:54] LABS: WBC,URINE 0-5 /HPF (0-5/HPF)
[2024-01-04 15:58] LABS: INR 1.8 (0.9-1.2); PROTHROMBIN TIME 18.1 SEC (9.0-12.0)
[2024-01-04 15:59] LABS: HCG QUALITATIVE,SERUM NEGATIVE (NEGATIVE)
[2024-01-04 16:06] LABS: BAND PERCENT MAN 2 %; LYMPHOCYTES PERCENT MAN 10 % (20-50); MONOCYTES PERCENT MAN 7 % (2-8); SEG NEUTROPHILS PERCENT MAN 81 % (42-75)
[2024-01-04 16:14] LABS: A/G RATIO 0.27; ALANINE AMINOTRANSFERASE,ALT 52 U/L (14-59); ALBUMIN 1.5 g/dL (3.4-5.0); ALKALINE PHOSPHATASE 259 U/L (46-116); ANION GAP 15.9 mEq/L (7-13); ASPARTATE AMNIOTRANSFERASE,AST 96 U/L (15-37); BLOOD UREA NITROGEN,BUN 15 mg/dL (7-18); BUN/CREATININE RATIO 7.9 (No establ ref range); C-REACTIVE PROTEIN 5.15 ng/dL (<=0.50); CALCIUM 7.7 mg/dL (8.5-10.1); CARBON DIOXIDE,CO2 21 mmol/L (21-32); CHLORIDE,CL 97 mmol/L (98-107); CREATININE 1.91 mg/dL (0.55-1.02); EST CRCL DRUG DOSING (CG) 40.74 mL/min; ESTIMATED GFR 35 mL/min (>=60); GLUCOSE RANDOM 104 mg/dL (70-99); LIPASE 57 U/L (16-77); POTASSIUM,K 2.9 mmol/L (3.5-5.1); PROTEIN TOTAL,TP 7.1 g/dL (6.4-8.2); SODIUM,NA 131 mmol/L (136-145)
[2024-01-04 16:15] LABS: BILIRUBIN TOTAL 28.8 mg/dL (0.2-1.0); ETHANOL BLOOD MEDICAL < 3 mg/dL (0)
[2024-01-04] MEDS: Sodium Chloride 0.9% 1,000 ML IV ONE (16:28)
[2024-01-04] MEDS: Potassium Chloride 10 MEQ Tab.ER PO ONE (16:28)
[2024-01-04 16:33] LABS: CORONAVIRUS COVID-19 NAA NEGATIVE (NEGATIVE); INFLUENZA A NAA NEGATIVE (NEGATIVE); INFLUENZA B NAA NEGATIVE (NEGATIVE); RESPIRATORY SYNCYTIAL VIR NAA NEGATIVE (NEGATIVE)
[2024-01-04] MEDS: Piperacillin/Tazobactam 4.5 GM in Sodium Chloride 0.9% 100 ML IV ONE (16:43)
[2024-01-04] MEDS: Albumin Human 50 GM in Premix Bag 1 BAG IV ONE (17:14)
[2024-01-04 17:16] VITALS: BP 131/63; PULSE 90
== END 2024-01-04 18:04 ==
LOC: DL.ED 15:08
DX: K72.10 Chronic hepatic failure without coma (principal); N17.9 Acute kidney failure, unspecified; I10 Essential (primary) hypertension; Z79.899 Other long term (current) drug therapy
CPT/HCPCS: 0241U; 36415; 80053; 80305; 80307; 81001; 82140; 83605; 83690; 84703; 85025; 85610; 86140; 87040; 96365; 96367; 99285; A9270; J2543; J3490; J7030; P9047

== ENCOUNTER 2024-01-14 13:39 | Emergency (ER) | payer MEDICAID ==
[2024-01-14 12:29] LABS: MEAN CORPUSCULAR HEMOGLOBIN 36.1 pg (27.0-34.0); MEAN CORPUSCULAR HGB CONC 30.2 g/dL (33.0-35.0); MEAN CORPUSCULAR VOLUME 119.9 fL (80-100); PLATELET COUNT,PLT 134 10^3/uL (150-450); RED BLOOD CELL COUNT 1.66 10^6/uL (4.2-5.4); WHITE BLOOD CELL COUNT,WBC 18.3 10^3/uL (5.0-10.0)
[2024-01-14 12:36] LABS: BASOPHILS PERCENT AUTO 0.6 % (0.0-1.0); EOSINOPHILS PERCENT AUTO 1.9 % (1.0-3.0); HEMATOCRIT 19.9 % (37.0-47.0); LYMPHOCYTES PERCENT AUTO 5.1 % (20.5-50.1); MONOCYTES PERCENT AUTO 9.1 % (2-8); NEUTROPHILS PERCENT AUTO 83.3 % (42.2-75.2)
[2024-01-14 12:46] LABS: INR 1.7 (0.9-1.2); PROTHROMBIN TIME 17.3 SEC (9.0-12.0)
[2024-01-14 13:11] LABS: ALBUMIN 1.7 g/dL (3.4-5.0); ANION GAP 18.2 mEq/L (7-13); BUN/CREATININE RATIO 12.7 (No establ ref range); CALCIUM 7.8 mg/dL (8.5-10.1); CREATININE 3.7 mg/dL (0.55-1.02); EST CRCL DRUG DOSING (CG) 22.6 mL/min; POTASSIUM,K 4.2 mmol/L (3.5-5.1); PROTEIN TOTAL,TP 5.6 g/dL (6.4-8.2)
[2024-01-14 13:12] LABS: A/G RATIO 0.44; BILIRUBIN TOTAL 28.2 mg/dL (0.2-1.0)
[2024-01-14 13:40] LABS: BAND PERCENT MAN 2 %; EOSINOPHILS PERCENT MAN 2 % (1-3); LYMPHOCYTES PERCENT MAN 7 % (20-50); MONOCYTES PERCENT MAN 4 % (2-8); SEG NEUTROPHILS PERCENT MAN 85 % (42-75)
[2024-01-14 19:51] VITALS: BP 135/73; PULSE 98
== END 2024-01-14 19:32 | disposition home or self-care (01) ==
LOC: DL.ED 13:39
DX: K72.10 Chronic hepatic failure without coma (principal); D64.9 Anemia, unspecified; I10 Essential (primary) hypertension; Z91.041 Radiographic dye allergy status; Z79.899 Other long term (current) drug therapy
CPT/HCPCS: 36415; 36430; 80053; 85025; 85610; 86850; 86900; 86901; 86920; 86922; 99284; P9016

== ENCOUNTER 2024-01-15 10:51 | Emergency (ER) | payer MEDICAID ==
[2024-01-15 10:46] VITALS: BP 127/103; PULSE 92
[2024-01-15 11:41] LABS: HEMATOCRIT 24.4 % (37.0-47.0); HEMOGLOBIN 7.9 g/dL (12.0-16.0); MEAN CORPUSCULAR HEMOGLOBIN 34.8 pg (27.0-34.0); MEAN CORPUSCULAR HGB CONC 32.4 g/dL (33.0-35.0); MEAN CORPUSCULAR VOLUME 107.5 fL (80-100); PLATELET COUNT,PLT 113 10^3/uL (150-450); RED BLOOD CELL COUNT 2.27 10^6/uL (4.2-5.4); WHITE BLOOD CELL COUNT,WBC 16.3 10^3/uL (5.0-10.0)
[2024-01-15 12:02] LABS: BASOPHILS PERCENT AUTO 0.7 % (0.0-1.0); EOSINOPHILS PERCENT AUTO 2.2 % (1.0-3.0); LYMPHOCYTES PERCENT AUTO 5.2 % (20.5-50.1); MONOCYTES PERCENT AUTO 9.8 % (2-8); NEUTROPHILS PERCENT AUTO 82.1 % (42.2-75.2)
[2024-01-15 12:11] LABS: ACANTHOCYTES 2+ MODERATE; BAND PERCENT MAN 2 %; BASOPHILS PERCENT MAN 1; EOSINOPHILS PERCENT MAN 2 % (1-3); LYMPHOCYTES PERCENT MAN 4 % (20-50); MONOCYTES PERCENT MAN 5 % (2-8); SEG NEUTROPHILS PERCENT MAN 86 % (42-75); TARGET CELLS 1+ SLIGHT
[2024-01-15 12:12] LABS: BURR CELLS 2+ MODERATE
[2024-01-15 12:13] LABS: PLATELET COUNT ESTIMATE DECREASED
[2024-01-15 12:18] LABS: A/G RATIO 0.41; ALBUMIN 1.7 g/dL (3.4-5.0); ANION GAP 18.5 mEq/L (7-13); BILIRUBIN TOTAL 28.9 mg/dL (0.2-1.0); BUN/CREATININE RATIO 12.4 (No establ ref range); CALCIUM 7.8 mg/dL (8.5-10.1); CREATININE 3.72 mg/dL (0.55-1.02); EST CRCL DRUG DOSING (CG) 22.48 mL/min; POTASSIUM,K 4.5 mmol/L (3.5-5.1); PROTEIN TOTAL,TP 5.8 g/dL (6.4-8.2)
[2024-01-15 12:56] LABS: INR 1.8 (0.9-1.2)
[2024-01-15] MEDS: Lactated Ringers 500 ML IV ONE (12:56)
[2024-01-15] MEDS: Albumin Human 50 GM in Premix Bag 1 BAG IV ONE (12:57)
== END 2024-01-15 16:18 | disposition home or self-care (01) ==
LOC: DL.ED 10:51
DX: K72.10 Chronic hepatic failure without coma (principal); K76.7 Hepatorenal syndrome; N17.9 Acute kidney failure, unspecified; D72.829 Elevated white blood cell count, unspecified; I10 Essential (primary) hypertension; Z91.041 Radiographic dye allergy status; Z79.899 Other long term (current) drug therapy
CPT/HCPCS: 36415; 80053; 82140; 83690; 85025; 85610; 85730; 96365; 96366; 99284; J7120; P9047

== ENCOUNTER 2024-01-17 01:44 | Emergency (ER) | payer MEDICAID ==
[2024-01-17 02:00] VITALS: BP 103/47; PULSE 93
== END 2024-01-17 03:09 | disposition home or self-care (01) ==
LOC: DL.ED 01:44
DX: K72.10 Chronic hepatic failure without coma (principal); K76.7 Hepatorenal syndrome; I10 Essential (primary) hypertension; Z91.041 Radiographic dye allergy status; Z79.899 Other long term (current) drug therapy; Z87.891 Personal history of nicotine dependence
CPT/HCPCS: 99284

== ENCOUNTER 2024-01-20 01:33 | Emergency (ER) | payer MEDICAID ==
[2024-01-20] MEDS ORDERED: Octreotide 100 MCG in Sodium Chloride 0.9% 99 ML IV SCH (02:15)
[2024-01-20 02:16] LABS: BASOPHILS PERCENT AUTO 0.9 % (0.0-1.0); EOSINOPHILS PERCENT AUTO 2.8 % (1.0-3.0); LYMPHOCYTES PERCENT AUTO 4.2 % (20.5-50.1); MEAN CORPUSCULAR HEMOGLOBIN 35.8 pg (27.0-34.0); MEAN CORPUSCULAR HGB CONC 32.4 g/dL (33.0-35.0); MEAN CORPUSCULAR VOLUME 110.5 fL (80-100); MONOCYTES PERCENT AUTO 10.2 % (2-8); NEUTROPHILS PERCENT AUTO 81.9 % (42.2-75.2); PLATELET COUNT,PLT 94 10^3/uL (150-450); WHITE BLOOD CELL COUNT,WBC 20.4 10^3/uL (5.0-10.0)
[2024-01-20 02:24] LABS: HEMOGLOBIN 6.8 g/dL (12.0-16.0)
[2024-01-20] MEDS: Octreotide 100 MCG/ML SDV SUBCUT ONE (02:39)
[2024-01-20] MEDS: Ondansetron 4 MG/2 ML SDV IVPUSH ONE (02:40)
[2024-01-20 02:41] LABS: LACTIC ACID 1.8 mmol/L (0.4-2.0)
[2024-01-20] MEDS: Pantoprazole 80 MG in Sodium Chloride 0.9% 100 ML IV ONE (02:57)
[2024-01-20] MEDS: Pantoprazole 40 MG in Sodium Chloride 0.9% 100 ML IV SCH (02:57)
[2024-01-20 03:01] LABS: ALANINE AMINOTRANSFERASE,ALT 51 U/L (14-59); ALBUMIN 2.2 g/dL (3.4-5.0); ALKALINE PHOSPHATASE 168 U/L (46-116); ANION GAP 17.7 mEq/L (7-13); ASPARTATE AMNIOTRANSFERASE,AST 83 U/L (15-37); BLOOD UREA NITROGEN,BUN 49 mg/dL (7-18); BUN/CREATININE RATIO 11.7 (No establ ref range); CALCIUM 8.3 mg/dL (8.5-10.1); CARBON DIOXIDE,CO2 17 mmol/L (21-32); CHLORIDE,CL 105 mmol/L (98-107); GLUCOSE RANDOM 100 mg/dL (70-99); MAGNESIUM 2.2 mg/dL (1.8-2.4); POTASSIUM,K 4.7 mmol/L (3.5-5.1); PROTEIN TOTAL,TP 6.2 g/dL (6.4-8.2); SODIUM,NA 135 mmol/L (136-145)
[2024-01-20] MEDS: Sodium Chloride 0.9% 10 ML Syringe FLUSH PRN (03:04)
[2024-01-20 03:09] LABS: A/G RATIO 0.55; ESTIMATED GFR 14 mL/min (>=60); ETHANOL BLOOD MEDICAL < 3 mg/dL (0)
[2024-01-20 03:34] LABS: INR 1.8 (0.9-1.2); PROTHROMBIN TIME 18.3 SEC (9.0-12.0); PTT,PARTIAL THROMBOPLSTIN TIME 40.1 SEC (22.0-34.0)
[2024-01-20] MEDS: Piperacillin/Tazobactam 4.5 GM in Sodium Chloride 0.9% 100 ML IV ONE (03:45)
[2024-01-20] MEDS: MVI, Adult with Vitamin K 10 ML, Folic Acid 1 MG, Thiamine 100 MG in Lactated Ringers 1... IV ONE (04:35)
[2024-01-20 04:54] VITALS: BP 98/57; PULSE 92
== END 2024-01-20 05:55 ==
LOC: DL.ED 01:33
DX: K92.0 Hematemesis (principal); D62 Acute posthemorrhagic anemia; K72.10 Chronic hepatic failure without coma; I10 Essential (primary) hypertension; Z91.041 Radiographic dye allergy status; Z79.899 Other long term (current) drug therapy
CPT/HCPCS: 36415; 36430; 71045; 80053; 80307; 82140; 83605; 83735; 84484; 85025; 85610; 85730; 86140; 86850; 86900; 86901; 86920; 86922; 93005; 93010; 96365; 96366; 96368; 96372; 96375; 99285; 99285-25; C9113; J2354-JB-GY; J2405; J2543; J3411; J3490; J7120; P9016

== ENCOUNTER 2024-12-26 21:14 | Emergency (ER) | payer MEDICAID ==
[2024-12-26] MEDS ORDERED: Sodium Chloride 0.9% 10 ML Syringe FLUSH PRN (21:21)
[2024-12-26] MEDS ORDERED: Pantoprazole 80 MG in Sodium Chloride 0.9% 100 ML IV SCH ×2 (21:30→21:45)
[2024-12-26] MEDS ORDERED: Octreotide 100 MCG in Sodium Chloride 0.9% 99 ML IV SCH (21:30)
[2024-12-26 21:47] LABS: MEAN CORPUSCULAR HEMOGLOBIN 21.6 pg (27.0-34.0); MEAN CORPUSCULAR HGB CONC 28.3 g/dL (33.0-35.0); MEAN CORPUSCULAR VOLUME 76.2 fL (80-100); PLATELET COUNT,PLT 81 10^3/uL (150-450); RED BLOOD CELL COUNT 3.15 10^6/uL (4.2-5.4)
[2024-12-26] MEDS: MVI, Adult with Vitamin K 10 ML, Folic Acid 1 MG, Thiamine 100 MG in Lactated Ringers 1... IV ONE (21:50)
[2024-12-26] MEDS: Pantoprazole 40 MG Vial IVPUSH ONE (21:50)
[2024-12-26] MEDS: Octreotide 100 MCG/ML SDV SUBCUT ONE (21:50)
[2024-12-26] MEDS: Ondansetron 4 MG/2 ML SDV IVPUSH ONE (21:55)
[2024-12-26 21:58] LABS: HEMOGLOBIN 6.8 g/dL (12.0-16.0)
[2024-12-26] MEDS: cefTRIAXone 1 GM Vial IVPUSH ONE (21:58)
[2024-12-26 21:59] LABS: LYMPHOCYTES PERCENT AUTO 2.1 % (20.5-50.1); MONOCYTES PERCENT AUTO 5.3 % (2-8); NEUTROPHILS PERCENT AUTO 92.6 % (42.2-75.2)
[2024-12-26 22:06] LABS: B-TYPE NATRIURETIC PEPTIDE,BNP 215 pg/ml (0-100)
[2024-12-26 22:08] LABS: ALANINE AMINOTRANSFERASE,ALT 22 U/L (14-59); ALBUMIN 2.5 g/dL (3.4-5.0); ALKALINE PHOSPHATASE 96 U/L (46-116); ANION GAP 21.4 mEq/L (7-13); ASPARTATE AMNIOTRANSFERASE,AST 27 U/L (15-37); BLOOD UREA NITROGEN,BUN 45 mg/dL (7-18); BUN/CREATININE RATIO 10.9 (No establ ref range); CARBON DIOXIDE,CO2 17 mmol/L (21-32); CHLORIDE,CL 102 mmol/L (98-107); CREATININE 4.14 mg/dL (0.55-1.02); GLUCOSE RANDOM 106 mg/dL (70-99); LIPASE 14 U/L (16-77); MAGNESIUM 1.8 mg/dL (1.8-2.4); POTASSIUM,K 4.4 mmol/L (3.5-5.1); PROTEIN TOTAL,TP 6.9 g/dL (6.4-8.2); SODIUM,NA 136 mmol/L (136-145)
[2024-12-26 22:10] LABS: INR 1.7 (0.9-1.2); PROTHROMBIN TIME 17.2 SEC (9.0-12.0); PTT,PARTIAL THROMBOPLSTIN TIME 42.2 SEC (22.0-34.0)
[2024-12-26 22:16] LABS: A/G RATIO 0.57; ESTIMATED GFR 14 mL/min (>=60); ETHANOL BLOOD MEDICAL < 3 mg/dL (0); LACTIC ACID 5.3 mmol/L (0.4-2.0)
[2024-12-26] MEDS: OCTREOTIDE IV SCH (22:19)
[2024-12-26] MEDS: SODIUM CHLORIDE 0.9% IV SCH (22:19)
[2024-12-26 22:30] LABS: BAND PERCENT MAN 12 %; LYMPHOCYTES PERCENT MAN 2 % (20-50); MONOCYTES PERCENT MAN 3 % (2-8); SEG NEUTROPHILS PERCENT MAN 83 % (42-75)
[2024-12-27] MEDS: MVI, Adult with Vitamin K 10 ML SDV ONE (00:14)
[2024-12-27] MEDS: Pantoprazole 40 MG Vial IVPUSH SCH (00:20)
[2024-12-27] MEDS: Promethazine 25 MG/ML SDV IM ONE (00:28)
[2024-12-27] MEDS: Metoclopramide 10 MG/2 ML SDV IVPUSH ONE (00:29)
[2024-12-27 04:37] VITALS: BP 97/37; PULSE 115
[2024-12-27] MEDS: Thiamine 200 MG/2 ML MDV ONE (04:41)
[2024-12-27] MEDS: Ondansetron 4 MG/2 ML SDV IVPUSH ONE (04:48)
== END 2024-12-27 00:52 ==
LOC: DL.ED 21:14
DX: K92.0 Hematemesis (principal); D62 Acute posthemorrhagic anemia; K92.2 Gastrointestinal hemorrhage, unspecified; K70.31 Alcoholic cirrhosis of liver with ascites; N17.9 Acute kidney failure, unspecified; Z91.041 Radiographic dye allergy status; I10 Essential (primary) hypertension; Z79.899 Other long term (current) drug therapy
CPT/HCPCS: 36415; 36430; 71045; 80053; 80307; 82140; 83605; 83690; 83735; 83880; 84484; 85025; 85610; 85730; 86140; 86850; 86900; 86901; 86920; 86922; 87040; 87077; 87186; 96365; 96366; 96367; 96372; 96375; 99285; J0696; J2354; J2405; J2470; J2550; J2765; J3411; J7120; P9016; J3490